=== PATIENT | female | born 1965 | race Caucasian/White ===

== ENCOUNTER 2023-02-06 09:14 | Emergency (ER) | payer OTHER ==
[~2023-02-06] VITALS: Ht 162.6 cm; Wt 56.7 kg
[2023-02-06 09:14] VITALS: BP_SYST 143; BP_DIAS 68; BP_DIAS 98
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
[2023-02-06 09:32] VITALS: BP 137/91
[2023-02-06] MEDS ORDERED: NS 1000ML 1,000 ML STA (09:33)
--- NOTE | 2023-02-06 09:33 | PCM.EKG ---
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
[2023-02-06] MEDS ORDERED: NS 1000ML 1,000 ML ONE (09:36)
[2023-02-06] MEDS ORDERED: ZOFRAN IV STA (09:41)
[2023-02-06 09:42] LABS: BASOPHIL # 0.1 10^3/uL (0.0-0.1); BASOPHIL % 0.7 % (0.0-0.2); EOSINOPHIL # 0.3 10^3/uL (0.0-0.2); LYMPHOCYTES # 1.79 10^3/uL1 (1.0-4.8); LYMPHOCYTES % 26.5 % (24.0-44.0); MEAN CORP HGB 31.1 pg (26-34); MONOCYTES # 0.7 10^3/uL (0.3-0.8); MONOCYTES % 9.6 % (5.0-12.0); NEUTROPHILS % 59.1 % (41.0-85.0); PLATELET COUNT 252 10^3/uL (150-400); RED CELL DISTRIBUTION WIDTH 12.3 % (11.5-14.5)
[2023-02-06] MEDS ORDERED: ZOFRAN ONE (09:43)
--- NOTE | 2023-02-06 09:59 | DIREP ---
PROCEDURE:CHEST 1 VIEW COMPARISON:None. INDICATIONS:vertigo FINDINGS: LUNGS/PLEURA:Mild hyperinflation. No focal consolidation, pleural effusion, or pneumothorax. VASCULATURE:Normal. Unremarkable pulmonary vasculature. CARDIAC:Heart size is normal. MEDIASTINUM:Normal. No visible mass or adenopathy. BONES:Mild bilateral acromioclavicular arthrosis. No acute abnormality. OTHER:Negative. CONCLUSION: 1. The lungs are mildly hyperinflated but clear. 2. Heart size and pulmonary vasculature are normal. Dictated by: Aristides Velasco MD on 02/06/2023 at 09:56 AM
[2023-02-06 10:04] LABS: CARBON DIOXIDE 30.8 mmol/L (20.0-32); GLUCOSE 110 mg/dL (70-110)
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
== END 2023-02-06 11:05 | disposition home or self-care (01) ==
LOC: ER 09:14
DX: H81.399 Other peripheral vertigo, unspecified ear (principal); Z90.49 Acquired absence of other specified parts of digestive tract; Z90.710 Acquired absence of both cervix and uterus
CPT/HCPCS: 99285; 96374; 71045; 96361; 80053; 85025; 36415; 84484; 83880; 85610; 93005; J7030; J2405